=== PATIENT | male | born 1985 | race Caucasian/White ===

== ENCOUNTER 2018-11-27 19:25 | Emergency (ER) | payer OTHER ==
[~2018-11-27] VITALS: Ht 182.9 cm; Wt 88.5 kg
[2018-11-27] MEDS ORDERED: CYCL10 PO (19:53)
[2018-11-27] MEDS ORDERED: Percocet 5-3251 EACH PO (19:53)
== END 2018-11-27 20:09 | disposition home or self-care (01) ==
LOC: ER 19:25
DX: M62.838 Other muscle spasm (principal); Z88.0 Allergy status to penicillin
CPT/HCPCS: 99283

== ENCOUNTER 2020-02-05 15:58 | Emergency (ER) | payer OTHER ==
[~2020-02-05] VITALS: Ht 182.9 cm; Wt 90.7 kg
[~2020-02-05 15:58] MED LIST: CYCL10 PO; Percocet 5-3251 EACH PO
[2020-02-05] MEDS ORDERED: Robaxin-750750 MG PO (18:13)
[2020-02-05] MEDS ORDERED: Percocet 5-3251 EACH PO (18:13)
== END 2020-02-05 18:27 | disposition home or self-care (01) ==
LOC: ER 15:58
DX: M54.5 Low back pain (principal); Z88.0 Allergy status to penicillin; Z79.899 Other long term (current) drug therapy
CPT/HCPCS: 96372; 99283-25; A9270; J1885

== ENCOUNTER 2022-07-14 19:17 | Emergency (ER) | payer OTHER ==
[~2022-07-14] VITALS: Ht 182.9 cm; Wt 90.7 kg
[~2022-07-14 19:17] MED LIST changes: +Robaxin-750750 MG PO
[2022-07-14] MEDS ORDERED: METPHE10 PO (19:25)
[2022-07-14 21:39] VITALS: BP 135/83
== END 2022-07-14 21:36 | disposition home or self-care (01) ==
LOC: ER 19:17
DX: S83.92XA Sprain of unspecified site of left knee, initial encounter (principal); X50.9XXA Other and unspecified overexertion or strenuous movements or postures, initial encounter; Y93.64 Activity, baseball; Z88.0 Allergy status to penicillin
CPT/HCPCS: 73562-LT; 96372; 99283-25; A9270; J1885

== ENCOUNTER 2022-08-28 20:58 | Emergency (ER) | payer OTHER ==
[~2022-08-28] VITALS: Ht 182.9 cm; Wt 90.7 kg
[~2022-08-28 20:58] MED LIST changes: +METPHE10 PO
[2022-08-28 21:04] VITALS: BP 125/74
[2022-08-28] MEDS ORDERED: LIDOCAINE1 EACH TOP (22:12)
[2022-08-28] MEDS ORDERED: Robaxin750 MG PO (22:12)
== END 2022-08-28 22:28 | disposition home or self-care (01) ==
LOC: ER 20:58
DX: M54.50 Low back pain, unspecified (principal); Z88.0 Allergy status to penicillin; Z79.899 Other long term (current) drug therapy
CPT/HCPCS: 96372; 99283-25; A9270; J1885